=== PATIENT | female | born 1970 | race Caucasian/White ===

== ENCOUNTER 2020-07-22 14:12 | Emergency (ER) | payer BC ==
[~2020-07-22] VITALS: Ht 170.2 cm; Wt 79.5 kg
[2020-07-22] MEDS ORDERED: KLONOPIN 1MG1 MG PO (14:35)
[2020-07-22] MEDS ORDERED: LATUDA20 MG PO (14:35)
[2020-07-22] MEDS ORDERED: LAMICTAL 100MG100 MG PO (14:36)
[2020-07-22 14:46] LABS: COLLECTION METHOD CLEAN CATCH
[2020-07-22 15:02] LABS: TRICYCLIC ANTIDEPRESS URINE NEGATIVE
[2020-07-22 15:12] LABS: PH 6 (5-8); SQUAMOUS EPITHELIAL 0-2 /hpf; URINE APPEARANCE Hazy; URINE BACTERIA Rare /hpf; URINE BILIRUBIN Negative (NEGATIVE); URINE BLOOD 3+ (NEGATIVE); URINE COLOR Yellow; URINE GLUCOSE Negative (NEGATIVE); URINE KETONE Negative (NEGATIVE); URINE LEUKOCYTE ESTERASE Negative (NEGATIVE); URINE NITRATE Negative (NEGATIVE); URINE PROTEIN(semi-quant) Negative (NEGATIVE); URINE RBC >50 /hpf; URINE UROBILINOGEN Negative (NEGATIVE)
[2020-07-22 15:27] LABS: BASO # 0.1 (0.0-0.2); BASO % 0.7 % (0.0-2.0); EOS # 0.4 (0.0-0.7); EOS % 3.5 % (0-4.0); GRAN # 6.5 (1.4-6.5); GRAN % 60.9 % (42.2-75.2); HEMATOCRIT 40.4 % (37.0-47.0); HEMOGLOBIN 13.2 g/dl (12.5-16.0); LYMPH # 3.1 (1.2-3.4); LYMPH % 28.8 % (20.0-51.0); MEAN CELL VOLUME 86 fl (80.0-100.0); MEAN CORPUSCULAR HEMOGLOBIN 28 pg (27.0-31.0); MEAN CORPUSCULAR HGB CONC 33 g/dl (33.0-37.0); MEAN PLATELET VOLUME 9.5 fl (7.4-10.4); MONO # 0.6 (0.1-0.6); MONO % 5.9 % (1.7-9.3); PLATELET COUNT 292 K/mm3 (130-400); RED BLOOD COUNT 4.71 M/mm3 (4.10-5.30); REDCELL DISTRIBUTION WIDTH-CV 12.3 % (11.5-14.5)
[2020-07-22 15:34] LABS: ACETAMINOPHEN < 10 ug/mL (10-30); ALANINE AMINOTRANSFERASE 24 U/L (4-34); ALBUMIN 3.9 gm/dL (3.5-5.0); ALCOHOL(ethanol),MEDICAL < 10 mg/dL; ALKALINE PHOSPHATASE 76 U/L (50-136); ANION GAP 4 mmol/L (7-16); AST,SGOT 28 U/L (15-37); BILIRUBIN,TOTAL 0.2 mg/dL (0.0-1.0); BLOOD UREA NITROGEN 15 mg/dL (7-17); CALCIUM 8.7 mg/dL (8.4-10.2); CARBON DIOXIDE 27 mmol/L (22-30); CHLORIDE 105 mmol/L (98-107); GLUCOSE 145 mg/dL (74-106); POTASSIUM 3.2 mmol/L (3.4-5.0); SALICYLATE < 1.0 mg/dL; SODIUM 137 mmol/L (137-145); TOTAL PROTEIN 7.3 gm/dL (6.4-8.2)
[2020-07-22 21:00] VITALS: BP 125/79; PULSE 68; TEMP 98.2
== END 2020-07-22 21:15 ==
LOC: COL.ER 14:12
PROVIDERS: Emergency Medicine
DX: R45.851 Suicidal ideations (principal); F32.9 Major depressive disorder, single episode, unspecified; F41.9 Anxiety disorder, unspecified; Z79.899 Other long term (current) drug therapy; Z20.822 Contact with and (suspected) exposure to COVID-19

== ENCOUNTER → 2021-09-19 | Outpatient (CLI) | payer BC ==
[~2021-09-19] MED LIST: KLONOPIN 1MG1 MG PO; LAMICTAL 100MG100 MG PO; LATUDA20 MG PO
== END ==
LOC: COL.RAD 12:26
DX: N92.0 Excessive and frequent menstruation with regular cycle (principal)

== ENCOUNTER 2023-02-27 11:03 | Day surgery (SDC) | payer BC ==
[~2023-02-27] VITALS: Ht 170.2 cm; Wt 81.8 kg
[2023-02-27] VITALS (11 sets, daily range): BP systolic 85–112; BP diastolic 43–84; PULSE 49–58; TEMP 98.4
[~2023-02-27 11:03] MED LIST changes: +DESYREL 50MG50 MG PO; +LIPITOR 10MG10 MG PO; +NORVASC2.5 MG PO; +PRIL40 PO; +PRISTIQ 50 MG T50 MG PO; +TOPROL XL 25MG25 MG PO
[2023-02-27] MEDS ORDERED: 1/2 NS 1,000 ML IV SCH (11:30)
[2023-02-27] MEDS ORDERED: LORazepam 1 MG TAB PO ONE (11:45)
[2023-02-27 12:11] LABS: INR 1.1 (0.8-3.0); PROTHROMBIN TIME 11.5 SECONDS (9.7-12.8)
[2023-02-27 12:13] LABS: HEMATOCRIT 40.9 % (37.0-47.0); HEMOGLOBIN 13.5 g/dl (12.5-16.0); MEAN CELL VOLUME 85 fl (80.0-100.0); MEAN CORPUSCULAR HEMOGLOBIN 28 pg (27-31); MEAN CORPUSCULAR HGB CONC 33 g/dl (33.0-37.0); MEAN PLATELET VOLUME 9.5 fl (7.4-10.4); PLATELET COUNT 299 K/mm3 (130-400); RED BLOOD COUNT 4.79 M/mm3 (4.10-5.30); REDCELL DISTRIBUTION WIDTH-CV 12.2 % (11.5-14.5)
[2023-02-27 12:21] LABS: CALCIUM 9.1 mg/dL (8.4-10.2); CREATININE, serum 0.84 mg/dL (0.57-1.11); POTASSIUM 4.1 mmol/L (3.5-4.5)
--- NOTE | 2023-02-27 12:58 | NUR ---
Refer to [employer] report for procedural notes/sedation
[2023-02-27] MEDS ORDERED: Iohexol 350 - 100 ML VIAL INCOR ONE (13:41)
[2023-02-27] MEDS ORDERED: Nitroglycerin 100 MCG/ML (Cath Lab) 10 ML VIAL IA SCH (13:42)
[2023-02-27] MEDS ORDERED: Heparin 1,000 UNITS/ML 10 ML Multi-Dose VIAL IV SCH (13:42)
[2023-02-27] MEDS ORDERED: Ondansetron 4 MG/2 ML VIAL IV SCH (13:43)
[2023-02-27] MEDS ORDERED: Midazolam 2 MG/2 ML VIAL IV SCH (13:43)
[2023-02-27] MEDS ORDERED: Verapamil 2.5 MG/ML 2 ML VIAL IA SCH (13:44)
[2023-02-27] MEDS ORDERED: fentaNYL 50 MCG/ML 2 ML VIAL IV SCH (13:45)
[2023-02-27] MEDS ORDERED: Acetaminophen 500 MG TAB PO ONE (14:30)
--- NOTE | 2023-02-27 14:45 | NUR ---
Pt returned from laborer demolition. Rt radial site clean, soft to palpation, TR band in place. Pt c/o pain at wrist. Arm is elevated on pillow for comfort. Pt also c/o headache. Tylenol is given per order, and lights dimmed for comfort. Call light in reach. Coffee and crackers provided to pt. Significant other at bedside.
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
--- NOTE | 2023-02-27 15:45 | NUR ---
2 ml of air removed from TR band. 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 Pt resting with arm elevated on pillow. She had also c/o headache pain, which is also improved. She states she is tired and wants to sleep. She is aware staff will be removing air from TR band and entering room to monitor site. Pt refused meal tray, but has eaten several packs of crackers, peanut butter & coffee. Report given to CHETNA Sanford who will take over cares of pt at this time.
--- NOTE | 2023-02-27 17:25 | NUR ---
pt assisted to main lobby via wheelchair and was accompanied by partner upon discharge. IV discontinued and vs remained within pts normal limits. pt right radial dressing clean dry and intact and pt free from acute concerns and complaints upon discharge.
== END 2023-02-27 17:05 | disposition home or self-care (01) ==
LOC: COL.CAR 11:03
PROVIDERS: Internal Medicine Cardiovascular Disease
DX: I25.10 Atherosclerotic heart disease of native coronary artery without angina pectoris (principal); I10 Essential (primary) hypertension; I07.9 Rheumatic tricuspid valve disease, unspecified; E78.5 Hyperlipidemia, unspecified; I47.10 Supraventricular tachycardia, unspecified; F17.210 Nicotine dependence, cigarettes, uncomplicated; Z79.899 Other long term (current) drug therapy
CPT/HCPCS: J1644; J2250; J2405; J3010; Q9967

== ENCOUNTER 2023-06-04 14:28 | Inpatient (IN) | payer BC ==
[~2023-06-04] VITALS: Ht 172.7 cm; Wt 84.7 kg
[2023-06-04] MEDS ORDERED: LORazepam 2 MG/ML 1 ML VIAL IV ONE ×2 (15:45→19:30)
[2023-06-04] MEDS ORDERED: NS 1,000 ML IV ONE ×2 (15:45→18:00)
[2023-06-04 16:20] LABS: ALBUMIN 3.5 g/dL (3.5-5.0); BILIRUBIN,TOTAL 0.7 mg/dL (0.2-1.2); CALCIUM 9.3 mg/dL (8.4-10.2); CREATININE, serum 1.04 mg/dL (0.57-1.11); POTASSIUM 3.6 mEq/L (3.5-4.5); TOTAL PROTEIN 7.5 g/dl (6.2-8.1)
[2023-06-04 16:53] LABS: COLLECTION METHOD CLEAN CATCH
[2023-06-04 17:01] LABS: PH 6.5 (5.0-8.5); URINE APPEARANCE CLEAR (CLEAR/HAZY); URINE BLOOD 3+ (NEGATIVE); URINE COLOR YELLOW (YELLOW); URINE GLUCOSE NEGATIVE (NEGATIVE); URINE KETONE NEGATIVE (NEGATIVE); URINE NITRATE POSITIVE (NEGATIVE); URINE PROTEIN(semi-quant) NEGATIVE (NEGATIVE); URINE UROBILINOGEN 0.2 E.U/dL (0.2-1.0)
[2023-06-04 17:01] LABS: HEMATOCRIT 39.8 % (37.0-47.0); HEMOGLOBIN 13.6 g/dl (12.5-16.0); MEAN CELL VOLUME 84 fl (80.0-100.0); MEAN CORPUSCULAR HEMOGLOBIN 29 pg (27-31); MEAN CORPUSCULAR HGB CONC 34 g/dl (33.0-37.0); MEAN PLATELET VOLUME 9.5 fl (7.4-10.4); PLATELET COUNT 242 K/mm3 (130-400); RED BLOOD COUNT 4.75 M/mm3 (4.10-5.30); REDCELL DISTRIBUTION WIDTH-CV 11.9 % (11.5-14.5)
[2023-06-04] MEDS ORDERED: Ondansetron 4 MG/2 ML VIAL IV ONE ×2 (17:15→20:45)
[2023-06-04 17:39] LABS: BAND 2 % (0-10); LYMPHOCYTE 12 % (20.0-51.0); NEUTROPHILS 76 % (42.0-75.2)
[2023-06-04 17:40] LABS: MICROCYTOSIS 1+
[2023-06-04] MEDS ORDERED: cefTRIAXone 1 G in Water For Injection,Sterile 10 ML IV ONE (18:00)
[2023-06-04] MEDS ORDERED: Acetaminophen 500 MG TAB PO ONE (20:30)
[2023-06-04] MEDS ORDERED: Acetaminophen 325 MG TAB PO ONE (20:45)
[2023-06-04] MEDS ORDERED: NS 1,000 ML IV SCH ×2 (20:45→21:45)
[2023-06-04] MEDS ORDERED: Acetaminophen 325 MG TAB PO PRN (21:45)
[2023-06-04] MEDS ORDERED: Ondansetron 4 MG/2 ML VIAL IV PRN (21:45)
[2023-06-04] MEDS ORDERED: Morphine 4 MG/ML VIAL IV PRN ×2 (22:00)
[2023-06-04] MEDS ORDERED: oxyCODONE 5 MG TAB PO PRN (22:00)
--- NOTE | 2023-06-04 22:30 | NUR ---
PT ARRIVED TO ROOM 357 VIA BED FROM ED & AMBULATED TO BED WITH X1 ASSIST. HERE FOR PYELONEPHRITIS. A&O X4. VSS ON 2L/NC. ON TELE. IVF & ABX INFUSING TO LEFT AC VIA PUMP. PT REPORTS MILD LEFT FLANK PAIN & CHILLS/SWEATING, TEMP 98.0. PT ORIENTED TO ROOM & ADMISSION COMPLETE. ATTEMPTED TO COMPLETE MED REC WITH PT, PT UNSURE OF ALL MEDS SHE TAKES, STATES HER BOYFRIEND WILL BRING IN A LIST TOMORROW MORNING. PT AMBULATED TO RESTROOM WITH STANDBY ASSIST. PT REQUESTING SOME BROTH & CRACKERS, REPORTS NOT BEING ABLE TO EAT FOR DAYS D/T FEELING BLOATED. DENYING FURTHER NEEDS. CALL LIGHT IN REACH
[2023-06-04 23:57] VITALS: BP 90/53; PULSE 81; TEMP 98
[2023-06-05] VITALS (13 sets, daily range): BP systolic 90–114; BP diastolic 52–72; PULSE 63–89; TEMP 98.2–99.7
--- NOTE | 2023-06-05 01:45 | NUR ---
PT REPORTING NAUSEA, GAVE PRN ZOFRAN PER MAR. PT DENIES OTHER NEEDS. CALL LIGHT IN REACH
--- NOTE | 2023-06-05 04:38 | NUR ---
PT HAS BEEN TEARFUL ALL NIGHT. PT REPORTING HEADACHE & NOT FEELING LIKE HER SELF, GAVE PRN TYLENOL PER MAR & EDUCATED ABOUT SX OF PYELONEPHRITIS. IV TO RT HAND STARTED BY SELF PAY COLLECTOR & ABX INFUSING NOW INFUSING TO THAT. NS @125 INFUSING TO LEFT AC. DENYING OTHER NEEDS. CALL LIGHT IN REACH
--- NOTE | 2023-06-05 07:00 | NUR ---
PT RESTING IN BED. IVF RUNNING. PT IS ON RA. PT IS AXOX3. PT HAS CALL LIGHT AND INSTRUCTED TO CALL WITH ALL NEEDS. 0750-PTS BREAKFAST ORDERED. PT EDUCATED ON TV AND CALL LIGHT.
[2023-06-05 07:01] LABS: ALBUMIN 2.6 g/dL (3.5-5.0); BILIRUBIN,TOTAL 0.7 mg/dL (0.2-1.2); CALCIUM 7.7 mg/dL (8.4-10.2); CREATININE, serum 0.93 mg/dL (0.57-1.11); POTASSIUM 3.7 mEq/L (3.5-4.5); TOTAL PROTEIN 5.5 g/dl (6.2-8.1)
[2023-06-05] MEDS ORDERED: Sennosides/Docusate 8.6-50 MG TAB PO SCH (09:00)
[2023-06-05] MEDS ORDERED: lamoTRIgine 100 MG TAB PO SCH (09:00)
[2023-06-05] MEDS ORDERED: Atorvastatin 10 MG TAB PO SCH (09:00)
[2023-06-05 10:18] LABS: BASO # 0.1 K/mm3 (0.0-0.2); BASO % 0.5 % (0.0-2.0); EOS # 0.1 K/mm3 (0.0-0.7); EOS % 0.8 % (0.0-4.0); GRAN # 11.6 K/mm3 (1.4-6.5); GRAN % 76.5 % (42.2-75.2); LYMPH # 2.1 K/mm3 (1.2-3.4); LYMPH % 13.6 % (20.0-51.0); MEAN CELL VOLUME 88 fl (80.0-100.0); MEAN CORPUSCULAR HGB CONC 32 g/dl (33.0-37.0); MEAN PLATELET VOLUME 10.2 fl (7.4-10.4); MONO # 1.3 K/mm3 (0.1-0.6); MONO % 8.3 % (1.7-9.3); PLATELET COUNT 204 K/mm3 (130-400); RED BLOOD COUNT 3.86 M/mm3 (4.10-5.30); REDCELL DISTRIBUTION WIDTH-CV 12.2 % (11.5-14.5)
[2023-06-05 10:20] LABS: MEAN CORPUSCULAR HEMOGLOBIN 28 pg (27-31)
--- NOTE | 2023-06-05 12:20 | NUR ---
social worker delinquency prevention met with patient x1 to complete intake. Pt request the nurse, MC informed CHETNA Beal. SW met with pt again to complete intake. She reports to live with her boyfriend, Alxeander [phone] in [place]. She sees Dr. Tolbert and obtains medications from [facility] with difficulties. She states she was fired from her job April 29, 2023 at [employer] due to them not being able to "accomdate her disabilities." She reports not having an financial means to pay. Pt states she is worried about all the bills and got tearful. She is independent with ADLS and uses no DME. Pt states "I want to talk to someone." SW stayed and talked with pt and stated she could provide resources on a therapist in her area. SW acknowledges the hardship of this without having insurance. She exressed being stressed and not having anyone to talk to. She states she has her boyfriend and children, but they do not understand or do not have a response. SW stayed in room and assisted pt with ordering lunch due to her "not being able to see." Pt requested ice water so SW confirmed with CHETNA Beal and provided this. Pt reports she just got "really thirsty" and to call the RN. SW notified CHETNA Beal. SW left pt and note to order PT/OT due to pt feeling weak. Discharge Plan: home, pt/ot pending MC emailed and attempted to call financial compliance manager, Kassandra to meet with patient to do FAA. Email sent to whole financial team.
--- NOTE | 2023-06-05 20:30 | NUR ---
Pt. laying in bed. Pt. is a&OX3, assessment complete. IV to rt. hand patent, IV fluids infusing per orders. INT to lt. ac patent. Pt. reports headache pain and pain to the neck and shoulders. Will give pain meds per orders. Pt. denies further needs, call light within reach.
[2023-06-05] MEDS ORDERED: traZODone 50 MG TAB PO SCH (21:00)
[2023-06-06] VITALS (11 sets, daily range): BP systolic 103–117; BP diastolic 61–80; PULSE 53–76; TEMP 97.9–99.2
[2023-06-06] MEDS ORDERED: traMADol 50 MG TAB PO PRN (03:30)
--- NOTE | 2023-06-06 03:58 | NUR ---
PATIENT UP FOR A SHORT WALK IN HALLWAY WITH CHARGE JASVIR. PATIENT STATED "I THINK I AM READY TO GO BACK TO MY ROOM. I AM FEELING A LITTLE DIZZY." CHARGE NURSE ASSISTED PATIENT BACK TO ROOM. PATIENT REQUESTED BATHROOM AND WAS HELPED TO BATHROOM. PATIENT VOIDED AND C/O BURNING. PATIENT ASSISTED BACK TO BED AND HELPED TO REPOSITION FOR COMFORT.
[2023-06-06 07:01] LABS: BASO % 0.4 % (0.0-2.0); EOS # 0.1 K/mm3 (0.0-0.7); EOS % 1.4 % (0.0-4.0); GRAN % 71.4 % (42.2-75.2); HEMOGLOBIN 10.4 g/dl (12.5-16.0); LYMPH # 1.5 K/mm3 (1.2-3.4); LYMPH % 17.7 % (20.0-51.0); MEAN CELL VOLUME 85 fl (80.0-100.0); MEAN CORPUSCULAR HEMOGLOBIN 28 pg (27-31); MEAN CORPUSCULAR HGB CONC 33 g/dl (33.0-37.0); MEAN PLATELET VOLUME 9.8 fl (7.4-10.4); MONO # 0.7 K/mm3 (0.1-0.6); MONO % 8.9 % (1.7-9.3); PLATELET COUNT 188 K/mm3 (130-400); REDCELL DISTRIBUTION WIDTH-CV 12.1 % (11.5-14.5)
[2023-06-06 07:04] LABS: HEMATOCRIT 31.4 % (37.0-47.0)
--- NOTE | 2023-06-06 07:16 | NUR ---
awake resting in bed, bedside shift report received from CHETNA Regan
[2023-06-06 07:30] LABS: ALBUMIN 2.3 g/dL (3.5-5.0); BILIRUBIN,TOTAL 0.4 mg/dL (0.2-1.2); CALCIUM 7.3 mg/dL (8.4-10.2); CREATININE, serum 0.8 mg/dL (0.57-1.11); POTASSIUM 3.2 mEq/L (3.5-4.5); TOTAL PROTEIN 5.2 g/dl (6.2-8.1)
--- NOTE | 2023-06-06 08:15 | NUR ---
has had breakfast and tolerated well, asking about echo and if she neds this, will talk with
--- NOTE | 2023-06-06 08:40 | NUR ---
appears to be sleeping, in bed with lights off, eyes closed, resp quiet and easy, does not awaken when entered the room
--- NOTE | 2023-06-06 09:49 | NUR ---
awakened and full assessment completed, see interventions for further iinfo, states she felt good this morning but ow just doens't feel as good, othing specific just shakey and doesn't feel good
--- NOTE | 2023-06-06 10:10 | NUR ---
Dr Bergman and care team were in to see patient
[2023-06-06] MEDS ORDERED: Polyethylene Glycol 3350 17 GM PDS PO PRN (10:30)
[2023-06-06] MEDS ORDERED: Sucralfate 1 G TAB PO ONE (10:30)
--- NOTE | 2023-06-06 10:35 | NUR ---
given new meds t hat were ordered, patient requessted to give herself the supp, provided lubricant and glove and will call if needs help
--- NOTE | 2023-06-06 11:25 | NUR ---
was able to insert suppository without difficulty and has had small results with it, currently talking on phone and denies needs, states does feel a little bit better now
--- NOTE | 2023-06-06 12:04 | NUR ---
c/o some back pain and thinks her headache is coming back, informed her to call if she needs something for the headache, also c/o acid reflux, reviewing menu for lunch
--- NOTE | 2023-06-06 12:46 | NUR ---
medicated wiht tramadol 50mg po for c/os headache, also c/o pain midsternum that moves down to umbilicus and around abdomen, JONAS Keenan notified of this
[2023-06-06] MEDS ORDERED: Pantoprazole 40 MG in NS 10 ML IV SCH (12:58)
[2023-06-06] MEDS ORDERED: NORCO 325 MG-51 TAB PO (13:05)
--- NOTE | 2023-06-06 13:06 | NUR ---
Dr Leavitt notified of consult
--- NOTE | 2023-06-06 13:17 | NUR ---
now c/o of increased pain and unable to take a deep breath, states pain is mid sternum and moves up to right side of chest, JONAS Keenan notified, and will notify Dr Bergman, Dr Bergman is now in the room
--- NOTE | 2023-06-06 13:21 | NUR ---
BP 130/80 T 98.7 HR 61, RR20, O2 sat 96%
--- NOTE | 2023-06-06 13:48 | NUR ---
resting quietly in bed without any moaning or grimacing or thrashing about in bed, EKG was completed
--- NOTE | 2023-06-06 14:10 | NUR ---
laba in to draw blood, states pain is slightly better
--- NOTE | 2023-06-06 14:31 | NUR ---
to radiology per WC for CT scan
[2023-06-06] MEDS ORDERED: Ondansetron 4 MG/2 ML VIAL IV PRN (14:45)
[2023-06-06] MEDS ORDERED: Iohexol 300 - 100 ML VIAL IV ONE (14:47)
--- NOTE | 2023-06-06 15:04 | NUR ---
returned to room per WC from radiology and CT scan, requesting to take a shower, GIGI in to assist her with taking a shower
--- NOTE | 2023-06-06 16:23 | NUR ---
is now resting in bed, states still has some pain but it is much better than what it was,
[2023-06-06] MEDS ORDERED: NS 1,000 ML IV SCH (17:30)
--- NOTE | 2023-06-06 18:18 | NUR ---
assisted her out of bed and up into chair per her request, will try to have some supper
--- NOTE | 2023-06-06 18:45 | NUR ---
PATIENT SITTING UP IN BEDSIDE RECLINER WITH TV ON WITH NO FAMILY PRESENT WITH NO ACUTE DISTRESS NOTED. PATIENT ON ROOM AIR. NS INFUSING INTO RIGHT HAND WITH NO COMPLICATIONS NOTED. INT TO LEFT AC INTACT WITH NO COMPLICATIONS NOTED. TELEMETRY INTACT. PATIENT REQUESTED CUP OF ICE AND WAS GIVEN. PATIENT DENIES ANY OTHER NEEDS. PATIENT CARE ASSUMED FROM SARAH. RECLINER LOCKED AND CALL LIGHT WITHIN REACH.
--- NOTE | 2023-06-06 18:58 | NUR ---
sitting up eating a sandwich with boyfriend at bedside, bedside shift report given to CHETNA Veronica
--- NOTE | 2023-06-06 19:30 | NUR ---
PATIENT RESTING IN RECLINER WITH TV ON WITH BOYFIREND AT BEDSIDE WITH NO ACUTE DISTRESS NOTED. PATIENT ON ROOM AIR. NS INFUSING INTO RIGHT HAND WITH NO COMPLICATIONS NOTED. INTO TO RIGHT AC INTACT WITH NO COMPLICATIONS NOTED. PATIENT C/O HEADACHE WITH PAIN LEVEL OF 7 ON SCALE OF 0 TO 10. ULTRAM GIVEN PER MD ORDER. PATIENT TOLERATED WELL. PATIENT REQUESTED WARM BLANKET AND WAS GIVEN. PATIENT DENIES ANY OTHER NEEDS AT THIS TIME. RECLINER LOCKED. BED IN LOW POSITION WITH WHEELS LOCKED WITH RAILS UP X2 AND CALL LIGHT WITHIN REACH.
--- NOTE | 2023-06-06 22:00 | NUR ---
PATIENT RESTING IN BED LYING ON LEFT SIDE WITH TV ON WITH NO FAMILY PRESENT WITH NO ACUTE DISTRESS NOTED. PATIENT ON ROOM AIR. NS INFUSING INTO RIGHT HAND WITH ZOSYN WITH NO COMPLICATIONS NOTED. PATIENT C/O OF NAUSEA. IV ZOFRAN GIVEN PER MD ORDER. PATIENT C/O HARD BALL FEELING TO ABDOMEN. PATIENT VERBALZIED UNDERSTANDING THAT HOSPITALIST WOULD BE CALLED IF ZOFRAN DID NOT HELP WITHIN 15 MINTUES. PATIENT DENIES ANY OTHER NEEDS AT THIS TIME. BED IN LOW POSITION WITH WHEELS LOCKED WITH RAILS UP X2 AND CALL LIGHT WITHIN REACH.
--- NOTE | 2023-06-06 22:10 | NUR ---
HOSPITALIST OSMANI TUTTLE APRN TALKED TO IN PERSON WHILE ON UNIT ABOUT PATIENT C/O STOMACH PAIN THAT FEELS LIKE A KNOT. ORDER RECIEVED FOR STEVE. SEE ORDERS.
--- NOTE | 2023-06-06 22:20 | NUR ---
PATIENT RESTING IN BED WITH TV OFF WITH NO FAMILY PRESENT WITH NO ACUTE DISTRESS NOTED. PATIENT ON ROOM AIR. ZOSYN AND NS INFUSING INTO RIGHT HAND WITH NO COMPLICATIONS NOTED. INT TO LEFT AC INTACT WITH NO COMPICATIONS NOTED. SIMETHACON AND ROXICODONE GIVEN PER MD ORDERS. PATIENT C/O HEADACHE WITH ABDOMENIAL PAIN AND FILLING PRESSURE NEAR EPIGASTRIC REGION. PATIENT STATES PAIN LEVEL IS 8 ON SCALE OF 0 TO 10. PATIENT TOLERATED WELL. PATIENT DENIES ANY OTHER NEEDS AT THIS TIME. BED IN LOW POSITION WITH WHEELS LOCKED WITH RAILS UP X2 AND CALL LIGHT WITHIN REACH.
[2023-06-07] VITALS (8 sets, daily range): BP systolic 98–132; BP diastolic 60–82; PULSE 57–65; TEMP 98.3–98.8
--- NOTE | 2023-06-07 00:54 | NUR ---
PATIENT C/O OF PAIN. PO ULTRAM GIVEN WITH SIP OF WATER. PATIENT STATES PAIN LEVEL IS 8 ON SCALE OF 0 TO 10. PATIENT TOLERATED WELL. PATIENT DENIES ANY OTHER NEEDS. BED IN LOW POSITION WITH WHEELS LOCKED WITH RAILS UP X2 AND CALL LIGHT WITHIN REACH.
[2023-06-07 07:05] LABS: BASO # 0.1 K/mm3 (0.0-0.2); BASO % 0.5 % (0.0-2.0); EOS # 0.2 K/mm3 (0.0-0.7); EOS % 2.5 % (0.0-4.0); GRAN # 6.6 K/mm3 (1.4-6.5); GRAN % 70.2 % (42.2-75.2); HEMOGLOBIN 10.9 g/dl (12.5-16.0); LYMPH # 1.7 K/mm3 (1.2-3.4); LYMPH % 17.8 % (20.0-51.0); MEAN CELL VOLUME 86 fl (80.0-100.0); MEAN CORPUSCULAR HEMOGLOBIN 28 pg (27-31); MEAN CORPUSCULAR HGB CONC 33 g/dl (33.0-37.0); MEAN PLATELET VOLUME 9.8 fl (7.4-10.4); MONO # 0.8 K/mm3 (0.1-0.6); MONO % 8.7 % (1.7-9.3); PLATELET COUNT 228 K/mm3 (130-400); RED BLOOD COUNT 3.85 M/mm3 (4.10-5.30); REDCELL DISTRIBUTION WIDTH-CV 12.3 % (11.5-14.5)
[2023-06-07 07:08] LABS: HEMATOCRIT 32.9 % (37.0-47.0)
[2023-06-07 07:10] LABS: ALBUMIN 2.5 g/dL (3.5-5.0); BILIRUBIN,TOTAL 0.3 mg/dL (0.2-1.2); C-REACTIVE PROTEIN 11.23 mg/dL (0.00-0.50); CALCIUM 8.3 mg/dL (8.4-10.2); CREATININE, serum 0.89 mg/dL (0.57-1.11); POTASSIUM 3.7 mEq/L (3.5-4.5)
--- NOTE | 2023-06-07 07:50 | NUR ---
AT 0730 BEDSIDE SHIFT REPORT COMPLETE. PATIENT COMPLAINING OF NECK AND HEAD PAIN. THIS RN MASSAGED PATIENTS NECK REQUESTED. HOWEVER PER PATIENT IT PROVIDED NO RELIEF. WARM COMPRESS PROVIDED REQUESTED. PATIENT ASSISTED TO REPOSITION. PATEINTS CALL LIGHT WITHIN REACH, IVF AND ANTX INFUSING ORDERED (SEE EMAR)
--- NOTE | 2023-06-07 08:10 | NUR ---
PER PATIENT HER PAIN TO THE HEAD IS 9/10. PATIENT AGREED TO TRY TRAMADOL WITH SIP OF WATER. PATEINT STATED SHE NEEDS TO HAVE SOMETHIGN TO DRINK TO HELP WITH HER DRY THROAT. RN EDUCATED HER ON THE REASONS FOR HER NPO STATUS AN DAGAIN OFFERED ORAL MOUTH SWABS TO HELP WITH DRY MOUTH. PATIENTS CALL LIGHT WTIHIN REACH.
--- NOTE | 2023-06-07 08:25 | NUR ---
PA NOTIFIED THIS RN HAS TRIED MULTIPLE NON MEDICINAL INTERVENTIONS TO HELP WIHT PATIENTS HEAD AND NECK PAIN, THAT WERE UNSUCCESFUL (SEE PREVIOUS NOTE) , WELL TRAMADOL. HOWEVER PATIENT STILL ADAMANT THAT SHE HAS HAD A 9/10 "HEADACHE" TO THE BACK OF THE HEAD THAT RADIATES TO THE FRONT OF HER HEAD. PER PATIENT "YOU NEED TO DO SOMETHIN GABOUT THIS I HAVE HAD THIS HEADHACHE SINCE I CAME HERE." PER PATIENT SHE DOES NOT GET "HEADACHES LIKE THIS", AT HOME. WILL CONTINUE TO UPDATE PA NEEDED.
[2023-06-07] MEDS ORDERED: LR 1,000 ML IV SCH (10:00)
[2023-06-07] MEDS ORDERED: cefTRIAXone 1 G in Water For Injection,Sterile 10 ML IV SCH (11:15)
[2023-06-07] MEDS ORDERED: Ondansetron 4 MG/2 ML VIAL IV ONE (12:00)
--- NOTE | 2023-06-07 12:08 | NUR ---
patient taken to endo for egd.
[2023-06-07] MEDS ORDERED: fentaNYL 50 MCG/ML 2 ML VIAL ONE ×2 (12:27→13:33)
[2023-06-07] MEDS ORDERED: Lidocaine PF 2% (20 MG/ML) 5 ML VIAL ONE (13:32)
[2023-06-07] MEDS ORDERED: CEFTIN500 MG PO (13:32)
[2023-06-07] MEDS ORDERED: ULTRAM 50MG TAB50 MG PO (13:38)
--- NOTE | 2023-06-07 13:45 | NUR ---
GORDON ARRIVED FROM PACU AWAKE ALERT, AND VSS. POST OP VITALS INITATED. PATIENT WITH SAME COMPLANTS THIS AM.
--- NOTE | 2023-06-07 14:22 | NUR ---
patient not wanting to discharge at this time.. vss. patient to eat a late lunch and then rn will attempt discharge again.
--- NOTE | 2023-06-07 15:30 | NUR ---
PER PATIENT SHE IS WAITING FOR HER DAUGHTER TO ARRIVE FOR DISCHARGE.
--- NOTE | 2023-06-07 16:00 | NUR ---
PATIENT STATED SHE WOULD LIKE TO SHOWER PRIOR TO DISHCARGE (PATIENT OFFERED ONE POST OP BUT WAS NOT FEELING UP TO IT AT THE TIME.) PATIENTS IV REMOVED, NO TELE. BATHROOM AND SHOWER SET UP FOR PATIENTS, PATIENTS DA[facility] AT [facility] TO ASSIST
--- NOTE | 2023-06-07 16:08 | NUR ---
[employer] Network Architect met with patient, who is going to be discharged home today. Patient is worried about her hospital bill and SW discussed a Financial Application and gave referral to Financial Counseling.
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
--- NOTE | 2023-06-07 17:49 | NUR ---
paitents post op vitals all stable. patiuent denies any further needs at this time. patient dressed. her partner adn daughter at bedside. discharge instructions and education given. patient taken via wheelchair to er entrance where she left in stable condition with family.
[2023-06-08] MEDS ORDERED: LEVAQUIN 750MG750 M1 PO (08:18)
== END 2023-06-07 17:51 | disposition home or self-care (01) | DRG 872 ==
LOC: COL.ER 14:28 → MEDICAL 18:30
PROVIDERS: Emergency Medicine; Personal Emergency Response Attendant; Physician Assistant; ADMIT Internal Medicine
PROC: 0DB98ZX Excision of Duodenum, Via Natural or Artificial Opening Endoscopic, Diagnostic (ICD-10-PCS; principal; 2023-06-04)
PROC: 0DB68ZX Excision of Stomach, Via Natural or Artificial Opening Endoscopic, Diagnostic (ICD-10-PCS; 2023-06-04)
DX: A41.9 Sepsis, unspecified organism (principal); N10 Acute pyelonephritis; K57.90 Diverticulosis of intestine, part unspecified, without perforation or abscess without bleeding; R10.13 Epigastric pain; R63.0 Anorexia; K57.10 Diverticulosis of small intestine without perforation or abscess without bleeding; R07.9 Chest pain, unspecified; R51.9 Headache, unspecified; E87.6 Hypokalemia; R11.0 Nausea; I10 Essential (primary) hypertension; K59.00 Constipation, unspecified; F17.200 Nicotine dependence, unspecified, uncomplicated; E78.5 Hyperlipidemia, unspecified; F41.9 Anxiety disorder, unspecified; F32.A Depression, unspecified; G47.00 Insomnia, unspecified
CPT/HCPCS: J0696; J1956; J2060; J2405; J2543; J2704; J2765; J3010; J7030; Q9967